=== PATIENT | female | born 1985 | race Caucasian/White ===

== ENCOUNTER 2020-03-27 08:20 | Emergency (ER) | payer SELFPAY ==
[~2020-03-27] VITALS: Ht 162.6 cm; Wt 77.1 kg
--- NOTE | 2020-03-27 08:20 | NUR ---
[facility] TAKEN TO [facility]AIR [facility]
[2020-03-27 08:25] VITALS: BP 131/98
[2020-03-27] MEDS ORDERED: ACETAMINOPHEN 325 MG TAB PO ONE (08:50)
--- NOTE | 2020-03-27 08:53 | NUR ---
MOVED TO BED 4
--- NOTE | 2020-03-27 08:58 | NUR ---
35 y/o female bib [facility] c/o decreased sodium and left leg swelling x 3 days. Denies trauma/injury. No deformities/bruising noted. Pt able to ambulate without difficulty. 2/10 aching pain at this time. VSS medhx: denies
--- NOTE | 2020-03-27 09:04 | NUR ---
Ultrasound at bedside
--- NOTE | 2020-03-27 09:49 | NUR ---
Blood drawn at bedside and taken to lab.
[2020-03-27 10:02] LABS: BASOPHILS # (AUTO) 0.1 K/uL (0.00-0.22); BASOPHILS % (AUTO) 0.5 % (0.0-2.0); EOSINOPHILS # (AUTO) 0.1 K/uL (0-0.4); HEMATOCRIT 39.8 % (36-48); HEMOGLOBIN 13.5 g/dL (12.0-16.0); LYMPHOCYTES # (AUTO) 2.6 K/uL (2.5-16.5); LYMPHOCYTES % (AUTO) 18.5 % (20.5-51.1); MEAN CORPUSCULAR HEMOGLOBIN 31 pg (27-31); MEAN CORPUSCULAR HGB CONC 34 g/dL (33-37); MONOCYTES # (AUTO) 0.9 K/uL (0.8-1.0); MONOCYTES % (AUTO) 6.7 % (1.7-9.3); NEUTROPHILS # (AUTO) 10.4 K/uL (1.8-7.7); NEUTROPHILS % (AUTO) 73.3 % (42.2-75.2); PLATELET COUNT (AUTO) 375 K/uL (140-450); RED BLOOD CELL COUNT(AUTO) 4.42 MIL/uL (4.20-5.40); RED CELL DISTRIBUTION WIDTH 12.9 % (11.6-13.7); WHITE BLOOD COUNT (AUTO) 14.2 K/uL (4.8-10.8)
[2020-03-27 10:14] LABS: ANION GAP 13.4 (8-16); CARBON DIOXIDE 24.8 mmol/L (21-32); CREATININE 0.6 mg/dL (0.6-1.3); POTASSIUM 3.2 mmol/L (3.5-5.1); TOTAL BILIRUBIN 0.4 mg/dL (0.0-1.0)
[2020-03-27 11:04] VITALS: BP 131/98
--- NOTE | 2020-03-27 11:05 | NUR ---
PATIENT BIB [facility]. PATIENT EXAMINED BY DR. Vargas. PATIENT MEDICALLY CLEARED AND RELEASED IN CUSTODY IN STABLE CONDITION. ORIGINAL PRE-BOOK FORM GIVEN TO [facility] Officer.
== END 2020-03-27 11:05 ==
LOC: MED 08:20
DX: R60.1 Generalized edema (principal); F41.9 Anxiety disorder, unspecified; F31.9 Bipolar disorder, unspecified; Z02.89 Encounter for other administrative examinations
CPT/HCPCS: 36415; 80053; 84702; 85025; 93971; 99284; Q0092